=== PATIENT | female | born 1960 | race Native Hawaiian/Other Pacific Islander ===

== ENCOUNTER 2019-02-24 07:59 | Day surgery (SDC) | payer OTHER ==
[~2019-02-24] VITALS: Ht 170.2 cm; Wt 84.8 kg
== END 2019-02-24 09:37 | disposition home or self-care (01) ==
LOC: OR 07:59
PROC: 3E0R33Z Introduction of Anti-inflammatory into Spinal Canal, Percutaneous Approach (ICD-10-PCS; principal; 2019-02-24)
PROC: B01BYZZ Fluoroscopy of Spinal Cord using Other Contrast (ICD-10-PCS; 2019-02-24)
DX: M51.17 Intervertebral disc disorders with radiculopathy, lumbosacral region (principal)
CPT/HCPCS: J1020

== ENCOUNTER 2019-03-23 09:06 | Day surgery (SDC) | payer OTHER ==
[~2019-03-23] VITALS: Ht 30.5 cm; Wt 0.5 kg
== END 2019-03-23 10:55 | disposition home or self-care (01) ==
LOC: OR 09:06
PROC: 3E0R33Z Introduction of Anti-inflammatory into Spinal Canal, Percutaneous Approach (ICD-10-PCS; principal; 2019-03-23)
PROC: B01BYZZ Fluoroscopy of Spinal Cord using Other Contrast (ICD-10-PCS; 2019-03-23)
DX: M51.17 Intervertebral disc disorders with radiculopathy, lumbosacral region (principal)
CPT/HCPCS: J1020

== ENCOUNTER 2019-05-25 10:23 | Day surgery (SDC) | payer OTHER | END 2019-05-25 14:07 | disposition home or self-care (01) | LOC: OR 10:23 | PROC: 3E0T3BZ Introduction of Anesthetic Agent into Peripheral Nerves and Plexi, Percutaneous Approach (ICD-10-PCS; principal; 2019-05-25) | PROC: 3E0T33Z Introduction of Anti-inflammatory into Peripheral Nerves and Plexi, Percutaneous Approach (ICD-10-PCS; 2019-05-25) | PROC: BR16YZZ Fluoroscopy of Lumbar Facet Joint(s) using Other Contrast (ICD-10-PCS; 2019-05-25) | DX: M47.817 Spondylosis without myelopathy or radiculopathy, lumbosacral region (principal) | CPT/HCPCS: J1100; J2001 ==

== ENCOUNTER 2019-06-22 08:22 | Day surgery (SDC) | payer OTHER | END 2019-06-22 09:50 | disposition home or self-care (01) | LOC: OR 08:22 | PROC: 3E0T3BZ Introduction of Anesthetic Agent into Peripheral Nerves and Plexi, Percutaneous Approach (ICD-10-PCS; principal; 2019-06-22) | PROC: 3E0T33Z Introduction of Anti-inflammatory into Peripheral Nerves and Plexi, Percutaneous Approach (ICD-10-PCS; 2019-06-22) | PROC: BR16YZZ Fluoroscopy of Lumbar Facet Joint(s) using Other Contrast (ICD-10-PCS; 2019-06-22) | DX: M47.817 Spondylosis without myelopathy or radiculopathy, lumbosacral region (principal) | CPT/HCPCS: J1100; J2001 ==

== ENCOUNTER 2019-08-24 09:48 | Day surgery (SDC) | payer OTHER | END 2019-08-24 13:25 | disposition home or self-care (01) | LOC: OR 09:48 | PROC: 3E0T3TZ Introduction of Destructive Agent into Peripheral Nerves and Plexi, Percutaneous Approach (ICD-10-PCS; principal; 2019-08-24) | PROC: BR16YZZ Fluoroscopy of Lumbar Facet Joint(s) using Other Contrast (ICD-10-PCS; 2019-08-24) | DX: M47.817 Spondylosis without myelopathy or radiculopathy, lumbosacral region (principal) | CPT/HCPCS: J2001 ==

== ENCOUNTER 2019-09-21 09:28 | Day surgery (SDC) | payer OTHER | END 2019-09-21 12:11 | disposition home or self-care (01) | LOC: OR 09:28 | PROC: 3E0T3TZ Introduction of Destructive Agent into Peripheral Nerves and Plexi, Percutaneous Approach (ICD-10-PCS; principal; 2019-09-21) | PROC: BR16YZZ Fluoroscopy of Lumbar Facet Joint(s) using Other Contrast (ICD-10-PCS; 2019-09-21) | DX: M47.817 Spondylosis without myelopathy or radiculopathy, lumbosacral region (principal) | CPT/HCPCS: J2001 ==

== ENCOUNTER 2019-11-02 08:47 | Day surgery (SDC) | payer OTHER | END 2019-11-02 10:39 | disposition home or self-care (01) | LOC: OR 08:47 | PROC: 3E0R33Z Introduction of Anti-inflammatory into Spinal Canal, Percutaneous Approach (ICD-10-PCS; principal; 2019-11-02) | PROC: 3E0R3BZ Introduction of Anesthetic Agent into Spinal Canal, Percutaneous Approach (ICD-10-PCS; 2019-11-02) | DX: M53.3 Sacrococcygeal disorders, not elsewhere classified (principal); M46.1 Sacroiliitis, not elsewhere classified | CPT/HCPCS: J1100; J3490 ==

== ENCOUNTER 2020-06-12 12:28 | Outpatient (CLI) | payer OTHER | END 2020-06-12 23:43 | disposition home or self-care (01) | LOC: EMG 12:28 | DX: M54.16 Radiculopathy, lumbar region (principal) | CPT/HCPCS: 95860 ==

== ENCOUNTER 2020-06-14 12:14 | Outpatient (CLI) | payer OTHER | END 2020-06-14 23:00 | disposition home or self-care (01) | LOC: EMG 12:14 | DX: M54.16 Radiculopathy, lumbar region (principal) ==